=== PATIENT | female | born 1965 | race Caucasian/White ===

== ENCOUNTER 2017-01-29 05:50 | Day surgery (SDC) | payer OTHER ==
[2017-01-29] MEDS ORDERED: Lactated Ringers 1,000 ML PRIMARY IV ONE (06:01)
[2017-01-29] MEDS ORDERED: Clindamycin 900mg (Premix) 50 ML IV ONE (06:01)
[2017-01-29] MEDS ORDERED: LIDOCAINE W/ SODIUM BICARB 0.5 ML SYR ONE ×2 (06:01→07:22)
[2017-01-29] MEDS ORDERED: MEPIVACAINE HCL/PF 20 MG/1 ML IV ONE (06:46)
[2017-01-29] MEDS ORDERED: LIDOCAINE 2%/ EPI 1:200,000 - 20 ML VIAL ONE (06:46)
[2017-01-29] MEDS ORDERED: fentaNYL Inj 100 MCG/2 ML VIAL ONE (06:47)
[2017-01-29] MEDS ORDERED: MIDAZOLAM 5 MG/1 ML ONE (06:47)
[2017-01-29] MEDS ORDERED: BUPivacaine Inj 0.25% PF - 10ml vial ONE ×2 (06:55→08:08)
[2017-01-29] MEDS ORDERED: FLUoxetine 20 MG CAPSULE PO SCH (08:30)
[2017-01-29] MEDS ORDERED: traZODone Tab 50 MG TAB PO SCH (08:30)
[2017-01-29] MEDS ORDERED: IBUPROFEN 400 MG TABLET PO PRN (08:32)
[2017-01-29] MEDS ORDERED: ONDANSETRON 4 MG/2 ML VIAL IVP PRN (08:32)
[2017-01-29] MEDS ORDERED: ACETAMINOPHEN 325 MG TABLET PO PRN (08:32)
[2017-01-29] MEDS ORDERED: diphenhydrAMINE 25 MG CAPSULE PO PRN (08:32)
[2017-01-29] MEDS ORDERED: CALCIUM CARBONATE 500 MG (TUMS) CHEWABLE TABLET PO PRN (08:32)
[2017-01-29] MEDS ORDERED: BISACODYL 5 MG TABLET PO PRN (08:32)
[2017-01-29] MEDS ORDERED: Ondansetron ODT Tab 8 MG TAB PO PRN (08:32)
[2017-01-29] MEDS ORDERED: oxyCODONE-ACETAMINOPHEN 5-325 TAB PO PRN (08:32)
[2017-01-29] MEDS ORDERED: BISACODYL 10 MG SUPPOSITORY RECTAL PRN (08:32)
[2017-01-29] MEDS ORDERED: Prochlorperazine Tab 10 MG TAB PO PRN (08:32)
[2017-01-29] MEDS ORDERED: KETOROLAC 30 MG/1 ML VIAL IVP PRN (08:32)
[2017-01-29] MEDS ORDERED: NORMAL SALINE 10 ML SYRINGE FLUSH IVP PRN (08:32)
[2017-01-29] MEDS ORDERED: MAG HYDROX/AL HYDROX/SIMETH 30 ML SUSP PO PRN (08:32)
[2017-01-29] MEDS ORDERED: PREGABALIN PO SCH (09:00)
[2017-01-29 10:17] VITALS: RESP 18; TEMP 97.2
--- NOTE | 2017-01-29 15:34 | CRNA.PROCE ---
Nerve Block Documentation - - Safety Measures: Time Out Taken, Site Verified - - Type of Nerve Block Used: Left Infraclavicular Block Position for Nerve Block: Supine Moniters Used During Block: EKG, SPO2, NIBP Oxygen Sumpplented: Yes Sedation Used - Enter Amount in Comment Field: Midazolam (mg): Yes (3mgiv), Fentanyl (mcg): Yes (50mcg iv) Skin Prep Used: ChloroPrep Technique: Nerve Stimulator Nerve Block Needle Used: 80 mm ProBlk II Stimulation Hz: 1.0 Stimulation Staring mA: 1.2 Stimulation Ending mA: 0.5 Local Anesthetic - Enter Amt in Comment Field: 2 % Xylocaine with Epinephrine 1: 200,000 (mL): Yes (20ml), 2 % Mepivacaine (mL): Yes (20ml)
== END 2017-01-29 10:02 | disposition home or self-care (01) ==
LOC: SDSC 05:50
PROVIDERS: ATTEND Orthopaedic Surgery
DX: M65.4 Radial styloid tenosynovitis [de Quervain] (principal); S66.812A Strain of other specified muscles, fascia and tendons at wrist and hand level, left hand, initial encounter
CPT/HCPCS: 25000; J2704; J3010; J0670; J2250; J3490; J7120